=== PATIENT | male | born 1975 | race Asian ===

== ENCOUNTER 2018-09-11 12:36 | Emergency (ER) | payer OTHER ==
[~2018-09-11] VITALS: Ht 170.2 cm; Wt 126.1 kg
[2018-09-11 12:40] VITALS: TEMP 97.9
[2018-09-11 17:15] VITALS: BP 148/96
== END 2018-09-11 17:30 | disposition home or self-care (01) ==
LOC: ED 12:36
PROC: 09C37ZZ Extirpation of Matter from Right External Auditory Canal, Via Natural or Artificial Opening (ICD-10-PCS; principal; 2018-09-11)
DX: T16.1XXA Foreign body in right ear, initial encounter (principal)
CPT/HCPCS: 99283; J7040

== ENCOUNTER 2020-06-05 07:06 | Emergency (ER) | payer OTHER | END 2020-06-05 09:35 | disposition home or self-care (01) | LOC: ED 07:06 | DX: J02.9 Acute pharyngitis, unspecified (principal); Z03.818 Encounter for observation for suspected exposure to other biological agents ruled out; F17.210 Nicotine dependence, cigarettes, uncomplicated | CPT/HCPCS: 87502; 87635; 87651; 96372; 99283; G2023; U0003 ==